=== PATIENT | female | born 1970 | race Two or more races ===

== ENCOUNTER 2021-04-24 14:55 | Inpatient (IN) | payer OTHER ==
[~2021-04-24] VITALS: Ht 167.6 cm; Wt 121.1 kg
[2021-04-24] MEDS ORDERED: LEVETIRACETAM 1000MG PREMIX 100 ML IV ONE (15:30)
[2021-04-24 15:34] LABS: BASOPHILS % 0.4 % (0.0-2.0); EOSINOPHILS % 1.9 % (0.0-5.0); HEMATOCRIT. 40.4 % (36.0-48.0); HEMOGLOBIN. 13.8 g/dL (12.0-16.0); MEAN CORPUSCULAR HEMOGLOBIN 30.4 pg (28.0-32.0); MEAN CORPUSCULAR VOLUME 89.1 fL (81.0-99.0); MEAN PLATELET VOLUME 7.1 fl (7.4-10.4); MONOCYTES % 6.2 % (2.0-8.0); NEUTROPHILS % 46.5 % (40.0-76.0); PLATELET 388 x1000/uL (130-400); RED BLOOD CELL COUNT 4.53 mill/uL (4.2-5.4); RED CELL DISTRIBUTION WIDTH 13.7 % (11.6-14.6)
[2021-04-24 15:38] LABS: CHLORIDE 106 mEq/L (98-107)
[2021-04-24 15:42] LABS: ETHANOL BLOOD < 10 mg/dL
[2021-04-24 16:04] LABS: BG CARBOXYHEMOGLOBIN 0.8 % (0.5-1.5); BG DEOXYHEMOGLOBIN 6.1 % (0.0-5.0); BG FRACTION INSPIRED OXYGEN 21; BG HCO3 ACT 25.2 mmol/L (22.0-26.0); BG METHEMOGLOBIN 0.2 % (0.0-1.5); BG OXYGEN SATURATION 93.8 % (92.0-98.5); BG OXYHEMOGLOBIN 92.9 % (94.0-97.0); BG PCO2 42.6 mmHg (35.0-45.0); BG PH 7.389 (7.350-7.450); BG PO2 70.1 mmHg (75.0-100.0); BG SAMPLE SITE RIGHT RADIAL; BG TOTAL HEMOGLOBIN 13.8 g/dL (12.0-18.0); BG VENT MODE ROOM AIR
[2021-04-24] MEDS ORDERED: IOHEXOL-350 100 ML BOTTLE ONE (19:51)
[2021-04-24] MEDS ORDERED: CLONIDINE 0.1MG TABLET PO PRN (20:00)
[2021-04-24] MEDS ORDERED: MAGNESIUM/ALUMINUM HYDROXIDE/SIMETHICONE 30ML UDC PO PRN (20:00)
[2021-04-24] MEDS ORDERED: GUAIFENESIN 200MG/10ML SUGAR FREE UDC PO PRN (20:00)
[2021-04-24] MEDS ORDERED: ONDANSETRON HCL 4MG/2ML INJ IV PRN (20:00)
[2021-04-24] MEDS ORDERED: NORTRIPTYLINE HCL 25MG CAPSULE PO SCH (21:00)
[2021-04-24] MEDS ORDERED: HYDRALAZINE 20MG/ML VIAL IV ONE (21:15)
[2021-04-24] MEDS ORDERED: GABAPENTIN 400MG CAPSULE PO SCH (22:00)
[2021-04-24] MEDS ORDERED: VERAPAMIL HCL 40MG TABLET PO SCH (23:15)
[2021-04-25] MEDS: HYDROCODONE/ACETAMINOPHEN 5/325MG TABLET PO PRN ×2 (00:48→04:00)
[2021-04-25] MEDS ORDERED: POTASSIUM CHLORIDE INJ 40 MEQ in DEXT 5% WATER 250 ML IV ONE (01:00)
[2021-04-25] MEDS ORDERED: KCL 20MEQ/100ML X 2 FOR TOTAL KCL 40MEQ/200ML IV SCH (02:00)
[2021-04-25] MEDS: PANTOPRAZOLE 40MG DR TABLET PO SCH ×2 (02:41→08:13)
[2021-04-25] MEDS: ENOXAPARIN 30MG/0.3ML SYR SUBCUT SCH ×2 (02:41→08:13)
[2021-04-25 03:35] VITALS: BP 128/81
[2021-04-25] MEDS ORDERED: POTASSIUM CHLORIDE 20MEQ TABLET SR PO NR (05:00)
[2021-04-25 07:05] LABS: BASOPHILS % 0.4 % (0.0-2.0); EOSINOPHILS % 1.4 % (0.0-5.0); HEMOGLOBIN. 12.8 g/dL (12.0-16.0); LYMPHOCYTES % 26.1 % (20.0-50.0); MEAN CORPUSCULAR HEMOGLOBIN 30.2 pg (28.0-32.0); MEAN CORPUSCULAR VOLUME 89.7 fL (81.0-99.0); MEAN PLATELET VOLUME 7.1 fl (7.4-10.4); MONOCYTES % 7.6 % (2.0-8.0); NEUTROPHILS % 64.5 % (40.0-76.0); PLATELET 380 x1000/uL (130-400); RED BLOOD CELL COUNT 4.24 mill/uL (4.2-5.4); RED CELL DISTRIBUTION WIDTH 13.7 % (11.6-14.6)
[2021-04-25 07:16] LABS: CHLORIDE 108 mEq/L (98-107)
[2021-04-25 07:30] LABS: PHOSPHORUS 3.8 mg/dL (2.5-4.9)
[2021-04-25 08:04] VITALS: BP 134/67
[2021-04-25] MEDS ORDERED: DULOXETINE HCL 30MG DR CAPSULE PO SCH (09:00)
[2021-04-25 10:04] VITALS: BP 125/77
[2021-04-25] MEDS ORDERED: PANT40TA51 PO (10:27)
[2021-04-25] MEDS ORDERED: NORT25CA PO (10:27)
[2021-04-25] MEDS ORDERED: DULO30CA2 PO (10:27)
[2021-04-25] MEDS ORDERED: GABA-533 PO (10:27)
[2021-04-25 11:45] VITALS: BP 126/70
[2021-04-25 11:48] VITALS: BP 123/62
[2021-05-01] MEDS ORDERED: HYDR-4001 MT (15:53)
== END 2021-04-25 15:15 | disposition home or self-care (01) | DRG 101 ==
LOC: ER 14:55 → 5EST 18:44 → SUPCPDRO 19:46 → ENRESERV 21:38
PROVIDERS: ADMIT Internal Medicine; ATTEND Internal Medicine
DX: G40.909 Epilepsy, unspecified, not intractable, without status epilepticus (principal); G43.109 Migraine with aura, not intractable, without status migrainosus; E87.6 Hypokalemia; G89.4 Chronic pain syndrome; F41.9 Anxiety disorder, unspecified; Z20.822 Contact with and (suspected) exposure to COVID-19; K21.9 Gastro-esophageal reflux disease without esophagitis; Z88.6 Allergy status to analgesic agent; Z88.8 Allergy status to other drugs, medicaments and biological substances; Z79.899 Other long term (current) drug therapy
CPT/HCPCS: 36415; 36600; 70496; 70498; 71045; 80048; 80053; 80320; 82140; 82375; 82805; 82962; 83735; 84100; 84443; 84484; 85025; 87426; 99285; J1650; J1953; J3480; Q9967; G0480